=== PATIENT | female | born 1960 | race Caucasian/White ===

== ENCOUNTER → 2016-11-09 | Outpatient (REF) | payer OTHER ==
[~2016-11-09] MED LIST: NASONEX; OMEP20CA3 PO; astelin spray; ventolin inhaler
== END ==
LOC: M SFHCCLAY 08:01
PROVIDERS: ATTEND Family Medicine
DX: N88.8 Other specified noninflammatory disorders of cervix uteri (principal)

== ENCOUNTER → 2016-12-27 | Outpatient (REF) | payer OTHER | LOC: M SFHCCLAY 17:36 | PROVIDERS: ATTEND Family Medicine | DX: L72.0 Epidermal cyst (principal) ==

== ENCOUNTER → 2017-11-14 | Outpatient (REF) | payer OTHER ==
[2017-11-14 13:45] LABS: CHOLESTEROL LEVEL 238 MG/DL (<200); HDL CHOLESTEROL 50 MG/DL (>40); LDL CHOLESTEROL 135.4 MG/DL (<100); NON-HDL-C 188 MG/DL; TRIGLYCERIDES LEVEL 263 MG/DL (<150)
== END ==
LOC: M SFHCCLAY 07:57
DX: Z12.4 Encounter for screening for malignant neoplasm of cervix (principal)

== ENCOUNTER → 2019-11-19 | Outpatient (REF) | payer OTHER ==
[~2019-11-19] MED LIST changes: +ASPI81TA85 PO; +BIOT50005 PO; +CENTTAB PO; +LETR2.5T2 PO; +METO1TAB32 PO; +MOME50SP; +VITA500046 PO; +VITA500C24 PO; +ZOLO50TA PO
== END ==
LOC: M SFHCCLAY 08:21
PROVIDERS: ATTEND Family Medicine
DX: Z12.4 Encounter for screening for malignant neoplasm of cervix (principal)

== ENCOUNTER → 2019-12-24 | Outpatient (REF) | payer OTHER | LOC: M SFHCCLAY 10:35 | PROVIDERS: ATTEND Family Medicine | DX: Z12.4 Encounter for screening for malignant neoplasm of cervix (principal) ==

== ENCOUNTER → 2020-01-15 | Outpatient (REF) | payer OTHER | LOC: M SFHCCLAY 09:50 | PROVIDERS: ATTEND Family Medicine | DX: Z12.4 Encounter for screening for malignant neoplasm of cervix (principal) ==

== ENCOUNTER → 2020-08-28 | Outpatient (CLI) | payer BC, OTHER ==
[~2020-08-28] MED LIST changes: -ASPI81TA85 PO; +ASPI81TA86 PO; +GASTROGRAFIN SOLUTION 30ML (Q9963) As Ordered ONE; +ISOVUE-370 76% 100ML VIAL As Ordered ONE
--- NOTE | 2020-08-28 21:08 | REP ---
INDICATION: HX OF BREAST CA, RISING TUMOR MARKER. COMPARISON: 04/15/2011 TECHNIQUE: Axial contrast-enhanced images from the lung bases to the pubic symphysis using 100 cc Isovue 370 intravenous contrast material. Delayed images of the abdomen along with coronal and sagittal reformations obtained. This CT examination was performed using the following dose reduction techniques: Automated exposure control, adjustment of mA and/or kv according to the patient's size, and the use of iterative reconstruction technique. FINDINGS: Liver, spleen, pancreas, gallbladder, bilateral adrenal glands and kidneys are normal. The enteric system including stomach, small, and large bowel appears normal. No evidence for obstruction or acute inflammatory process. Normal terminal ileum and cecum are identified in the right lower quadrant. Pelvis demonstrates normal bladder and age-appropriate uterus/right adnexa. No ascites. No free air. No intraperitoneal or retroperitoneal adenopathy. Abdominal aorta demonstrates mild atherosclerotic changes without aneurysm or dissection. Musculoskeletal structures are intact and without acute osseous abnormality. IMPRESSION: No acute abdominopelvic pathology appreciated. No evidence for metastatic disease. <Electronically signed by Dalton Andre > 08/28/20 [id number]
--- NOTE | 2020-08-28 21:11 | REP ---
INDICATION: HX OF BREAST CA, RISING TUMOR MARKER COMPARISON: 04/30/2015 TECHNIQUE: Axial contrast enhanced images from the thoracic inlet to the upper abdomen with coronal and sagittal reformations using 100 ml Isovue 370 intravenous contrast material followed by CT of the abdomen and pelvis. This CT examination was performed using the following dose reduction techniques: Automated exposure control, adjustment of mA and/or kv according to the patient's size, and use of iterative reconstruction technique. FINDINGS: The bilateral lung [place] are relatively clear and without consolidation, obvious nodule or mass lesion. No pleural effusion. No pneumothorax. Tracheobronchial tree is patent. Very minimal scarring at the lingula is suggested. No significant axillary, hilar, or mediastinal adenopathy. Thoracic aorta, pulmonary vasculature, and heart/pericardium are relatively normal. No evidence for aortic aneurysm or dissection. No cardiomegaly or pericardial effusion. Osseous structures are intact and without acute abnormality. IMPRESSION: No acute mediastinal or pleuroparenchymal process. No obvious evidence for metastatic disease. <Electronically signed by Dalton Andre > 08/28/20 [id number]
== END ==
LOC: M RAD 15:49
PROVIDERS: ATTEND Internal Medicine Hematology & Oncology
DX: E55.9 Vitamin D deficiency, unspecified (principal); Z85.3 Personal history of malignant neoplasm of breast
CPT/HCPCS: 71260; 74177; Q9963; Q9967

== ENCOUNTER → 2020-09-17 | Outpatient (CLI) | payer BC, OTHER ==
[~2020-09-17] MED LIST changes: -GASTROGRAFIN SOLUTION 30ML (Q9963) As Ordered ONE; -ISOVUE-370 76% 100ML VIAL As Ordered ONE
--- NOTE | 2020-09-17 13:27 | REP ---
INDICATION: ASSES METS, HX OF BREAST CA. COMPARISON: None. TECHNIQUE/RADIOTRACER AND DOSE: 19.2 mCi of Technetium-99m MDP was injected and standard whole-body bone scanning is acquired. FINDINGS: There is a normal distribution of skeletal tracer with uptake in bilateral kidneys and in the urinary bladder. There is no evidence to suggest skeletal metastatic disease. IMPRESSION: Negative whole body radionuclide bone scan. <Electronically signed by George Espinosa > 09/17/20 [id number]
== END ==
LOC: M RAD 09:06
PROVIDERS: ATTEND Internal Medicine Hematology & Oncology
DX: Z85.3 Personal history of malignant neoplasm of breast (principal)
CPT/HCPCS: 78306; A9503

== ENCOUNTER → 2020-10-20 | Outpatient (CLI) | payer BC, OTHER | LOC: M LABSMTC 14:22 | PROVIDERS: ATTEND Family Medicine | DX: Z20.822 Contact with and (suspected) exposure to COVID-19 (principal) ==

== ENCOUNTER → 2021-03-04 | Outpatient (CLI) | payer BC, OTHER ==
[~2021-03-04] MED LIST changes: +ASPI1CHW3 PO; +CETI-24 PO; +D31000TA2 PO; +OMEP1CAP73 PO; +VENTAER INH; +VITMTA PO
== END ==
LOC: M LABSMTC 11:16
PROVIDERS: ATTEND Anesthesiology
DX: Z01.818 Encounter for other preprocedural examination (principal); Z11.52 Encounter for screening for COVID-19

== ENCOUNTER 2021-03-09 12:22 | Day surgery (SDC) | payer BC, OTHER ==
[~2021-03-09] VITALS: Ht 175.3 cm; Wt 112.0 kg
[~2021-03-09 12:22] MED LIST changes: +NS 1,000 ML IV ONE
[2021-03-09] MEDS ORDERED: fentaNYL 100 MCG/2 ML INJECTION (J3010) As Ordered ONE (13:36)
[2021-03-09] MEDS ORDERED: LIDOCAINE 2% 100MG/5ML SDV (FOR ANES.) As Ordered ONE (13:36)
[2021-03-09] MEDS ORDERED: propofoL 200 MG/20 ML VIAL As Ordered ONE ×4 (13:36→14:21)
--- NOTE | 2021-03-09 14:06 | ROOR ---
Patient Name: Polly Prince Procedure Date: 03/09/2021 1:45 PM Date of : 1960 Age: 60 Room: [facility] Gender: Female Note Status: Finalized Procedure: Upper GI endoscopy Indications: Surveillance for malignancy due to personal history of Hurtado's esophagus Providers: Adan Hussein MD Referring MD: Angelito Flores MD Requesting Provider: Medicines: Monitored Anesthesia Care Complications: No immediate complications. Procedure: Pre-Anesthesia Assessment: - The heart rate, respiratory rate, oxygen saturations, blood pressure, adequacy of pulmonary ventilation, and response to care were monitored throughout the procedure. The Endoscope was introduced through the mouth, and advanced to the second part of duodenum. The upper GI endoscopy was accomplished without difficulty. The patient tolerated the procedure well. Findings: The Z-line was variable and was found 38 cm from the incisors. Biopsies were taken with a cold forceps for histology. Small Hiatal Hernia. The entire examined stomach was normal. Three 3 mm sessile polyps were found in the first portion of the duodenum. This was biopsied with a cold forceps for histology. The exam of the duodenum was otherwise normal. Impression: - Z-line variable, 38 cm from the incisors. Biopsied. - Small Hiatal Hernia. - Otherwise normal stomach. - Three duodenal polyps. Biopsied. - Otherwise normal duodenum. Biopsied for eval for celiac diease Recommendation: - Continue present medications. - Observe patient's clinical course. - Follow an antireflux regimen. - Repeat upper endoscopy in 3 - 5 years for surveillance of Hurtado's esophagus. Procedure Code(s): --- Professional --- 98674, Esophagogastroduodenoscopy, flexible, transoral; with biopsy, single or multiple Diagnosis Code(s): --- Professional --- K31.7, Polyp of stomach and duodenum K22.70, Hurtado's esophagus without dysplasia K22.8, Other specified diseases of esophagus CPT copyright 2019 [employer]. All rights reserved. The codes documented in this report are preliminary and upon primary therapist review may be revised to meet current compliance requirements. Adan Hussein MD Adan Hussein MD 03/09/2021 2:05:58 PM Electronically signed by Adan Hussein MD Number of Addenda: 0 Note Initiated On: 03/09/2021 1:45 PM Estimated Blood Loss: Estimated blood loss: none.
--- NOTE | 2021-03-09 14:28 | ROOR ---
Patient Name: Polly Prince Procedure Date: 03/09/2021 1:46 PM Date of : 1960 Age: 60 Room: [facility] Gender: Female Note Status: Finalized Procedure: Colonoscopy Indications: High risk colon cancer surveillance: Personal history of colonic polyps, Incidental - Iron deficiency anemia Providers: Adan Hussein MD Referring MD: Angelito Flores MD Requesting Provider: Medicines: Monitored Anesthesia Care Complications: No immediate complications. Procedure: Pre-Anesthesia Assessment: - The heart rate, respiratory rate, oxygen saturations, blood pressure, adequacy of pulmonary ventilation, and response to care were monitored throughout the procedure. The Colonoscope was introduced through the anus and advanced to 10 cm into the ileum. The colonoscopy was performed without difficulty. The patient tolerated the procedure well. The quality of the bowel preparation was good. Findings: The perianal and digital rectal examinations were normal. Three sessile polyps were found in the ascending colon and cecum. The polyps were diminutive in size. These polyps were removed with a cold snare. Resection and retrieval were complete. Mild sigmoid diverticulosis and small internal hemorrhoids. The exam was otherwise without abnormality on direct and retroflexion views. Impression: - Three diminutive polyps in the ascending colon and in the cecum, removed with a cold snare. Resected and retrieved. - Mild sigmoid diverticulosis and small internal hemorrhoids. - The examination was otherwise normal on direct and retroflexion views. Recommendation: - Repeat colonoscopy in 5 years for surveillance. Procedure Code(s): --- Professional --- 74894, Colonoscopy, flexible; with removal of tumor(s), polyp(s), or other lesion(s) by snare technique Diagnosis Code(s): --- Professional --- K63.5, Polyp of colon Z86.010, Personal history of colonic polyps CPT copyright 2019 [employer]. All rights reserved. The codes documented in this report are preliminary and upon mortgage professional review may be revised to meet current compliance requirements. Adan Hussein MD Adan Hussein MD 03/09/2021 2:27:35 PM Electronically signed by Adan Hussein MD Number of Addenda: 0 Note Initiated On: 03/09/2021 1:46 PM Estimated Blood Loss: Estimated blood loss: none.
[2021-03-09 15:01] VITALS: BP 83/52
== END 2021-03-09 15:04 | disposition home or self-care (01) ==
LOC: M OPP 12:22
PROVIDERS: ATTEND Internal Medicine Gastroenterology
DX: Z12.11 Encounter for screening for malignant neoplasm of colon (principal); D12.2 Benign neoplasm of ascending colon; K64.8 Other hemorrhoids; K57.30 Diverticulosis of large intestine without perforation or abscess without bleeding; K22.8 Other specified diseases of esophagus; K44.9 Diaphragmatic hernia without obstruction or gangrene; K31.7 Polyp of stomach and duodenum; K22.70 Barrett's esophagus without dysplasia; K21.9 Gastro-esophageal reflux disease without esophagitis; R12 Heartburn; Z79.82 Long term (current) use of aspirin; Z79.899 Other long term (current) drug therapy; Z88.0 Allergy status to penicillin; Z88.1 Allergy status to other antibiotic agents; Z88.2 Allergy status to sulfonamides; Z85.3 Personal history of malignant neoplasm of breast
CPT/HCPCS: 43239; 45385; 88305; J3010

== ENCOUNTER → 2021-05-04 | Outpatient (CLI) | payer BC, OTHER ==
[~2021-05-04] MED LIST changes: +GASTROGRAFIN SOLUTION 30ML (Q9963) As Ordered ONE; +ISOVUE-370 76% 100ML VIAL As Ordered ONE; -NS 1,000 ML IV ONE
--- NOTE | 2021-05-04 14:09 | REP ---
INDICATION: RESTAGING BREAST CA, RISING TUMOR MARKERS ? METS. COMPARISON: 08/28/2020. TECHNIQUE: Bolus 100 mL Isovue 370 scanning through the chest with coronal and sagittal reconstructions. FINDINGS: The lung [place] are well inflated. There is no pleural effusion, pleural thickening or calcified pleural plaque. Some minor apical pleuroparenchymal scarring on the right. A tiny subpleural nodule in the perifissural region on image 16 a superior segment left lower lobe is unchanged. Lungs are otherwise clear heart is not enlarged. There is no pericardial effusion. I see no hiatal hernia. The aorta shows calcifications at the arch but no aneurysm or dissection. The main, right and left pulmonary arteries in the mediastinum are without filling defects. Adenopathy has developed in the mediastinum with a 15 mm subcarinal node, multiple subcentimeter precarinal and AP window nodes, bone windows show sternum, manubrium, medial clavicles, that portion of visualized scapulae, humeral heads, ribs and spine all without fracture or focal lesion. The upper abdomen shows visualized portions of liver, spleen, gallbladder, pancreas and upper poles of the kidneys intact. That portion of abdominal aorta seen was normal no hiatal hernia. No calcified gallstones. But all increased in size since previous study. Right paratracheal node on image 31 about 11 mm and conglomerate right hilar nodes up to 15 mm in short axis. Other cm sized right hilar and sub cm left hilar nodes seen. Prevascular space with a few subcentimeter nodes but increase in number and other superior mediastinal nodes anteriorly seen which were not present previously. There is no axillary supraclavicular adenopathy. There are surgical clips in the right axilla and bilateral chest wall from previous mastectomy and reconstruction surgeries. IMPRESSION: 1. A CT evidence of parenchymal lung metastatic disease, pleural effusion, bony metastatic disease or chest wall mass. Postsurgical changes in the chest wall and axilla as described. 2. Interval development of the adenopathy in the mediastinum including subcarinal, right paratracheal, right hilar nodes and increase in numbers in the AP window, left hilum and prevascular space nodes. No axillary or supraclavicular adenopathy/mass. 3. Visualized portion of upper abdomen without acute finding in the visible liver, adrenal glands, spleen and the portions of the pancreas, upper poles kidneys and gallbladder included. <Electronically signed by Nathan Person > 05/04/21 [id number]
--- NOTE | 2021-05-04 14:19 | REP ---
INDICATION: RESTAGING BREAST CA, RISING TUMOR MARKERS ? METS. COMPARISON: Comparison CT study of the abdomen and pelvis is from 28 August 2020.. TECHNIQUE: Helical scanning is acquired following the intravenous injection of 100 mL of Isovue 370. Oral contrast was also administered. 3 mm axial images re-formatted. Coronal and sagittal MPR images are provided. FINDINGS: Preliminary digital local bulk driver radiograph is unremarkable. Normal bowel gas pattern. There is no evidence of pleural effusion or upper abdominal ascites. There is mild to moderate diffuse fatty infiltration of the liver. Liver is not felt to be enlarged. Spleen is homogeneous in texture normal in size. No pancreatic abnormality is seen. No abnormality is noted in the gallbladder. Normal adrenal glands are observed. There is a single celiac axis lymph node in the midline of the upper abdomen which is slightly more prominent than on the August 28, 2020 study. this measures 13 x 11 by 14 mm. Previously, this node measured only 5 mm in greatest diameter. no periaortic or retroperitoneal adenopathy is seen. No pelvic mass or adenopathy is observed. Patient appears to be status post abdominal ventral hernia repair with multiple surgical clips along the anterior abdominal wall. Urinary bladder is intact. Uterus is unremarkable. No adnexal abnormality is seen. Small and large bowel loops are unremarkable in the abdomen and pelvis. Bone window settings show no evidence of lytic or blastic skeletal lesion to suggest bony metastatic disease. IMPRESSION: There is a single celiac axis lymph node in the upper abdominal midline which is slightly more prominent although still not pathologically enlarged. Uncertain significance. Fatty infiltration of the liver. Postoperative changes. Otherwise unremarkable. <Electronically signed by George Espinosa > 05/04/21 [id number]
--- NOTE | 2021-05-04 15:16 | REP ---
INDICATION: RESTAGING BREAST CA, RISING TUMOR MARKERS ? METS. COMPARISON: 09/17/2020 TECHNIQUE/RADIOTRACER AND DOSE: After the intravenous administration of 22 mCi of technetium 99 M MDP a total body bone scan was obtained. FINDINGS: Once again, there is a degenerative type uptake pattern seen in the shoulders, hips, knees, and feet. This is essentially unchanged. No abnormal linear or focal activity has developed since the last exam. IMPRESSION: No compelling evidence for metastatic disease. No significant change compared to the prior exam. <Electronically signed by Leon Hernandez > 05/04/21 [id number]
== END ==
LOC: M RAD 09:53
PROVIDERS: ATTEND Internal Medicine Hematology & Oncology
DX: C50.919 Malignant neoplasm of unspecified site of unspecified female breast (principal); E55.9 Vitamin D deficiency, unspecified; D64.9 Anemia, unspecified; J45.909 Unspecified asthma, uncomplicated; K22.70 Barrett's esophagus without dysplasia; K63.5 Polyp of colon

== ENCOUNTER → 2021-05-24 | Outpatient (CLI) | payer BC, OTHER ==
[~2021-05-24] MED LIST changes: -GASTROGRAFIN SOLUTION 30ML (Q9963) As Ordered ONE; -ISOVUE-370 76% 100ML VIAL As Ordered ONE
--- NOTE | 2021-05-24 14:47 | REP ---
INDICATION: RESTAGING MALIGNANT NEOPLASM OF FEMALE BREAST. New right paratracheal and subcarinal lymphadenopathy. Increased size of celiac axis lymph node. Patient is status post right mastectomy March 18, 2015 for malignancy. Prophylactic left mastectomy and breast reconstruction. Rising tumor markers. COMPARISON: Comparison PET-CT study May 21, 2015.. TECHNIQUE: Forty-nine minutes following the intravenous injection of a 8.83 mCi dose of F-18 FDG, three-dimensional PET scintigraphy is acquired from the skull base to the proximal thighs. Triplanar noncontrast CT scanning is acquired through the same anatomic range for attenuation correction, and image registration with scan parameters optimized to minimize radiation exposure to the patient. PET scintigraphy and CT datasets were fused and displayed on a workstation with multiplanar and projection display capability. FINDINGS: Head and neck soft tissues are unremarkable. In the chest, there is right paratracheal, pretracheal, subcarinal, and right hilar hypermetabolic lymphadenopathy. This corresponds to the CT findings. Metabolic activity in the subcarinal node is the most avid, maximum SUV value 11.89. Right hilar adenopathy shows SUV 11.54. Other kevon activity ranges up from 5.01. There is no other abnormal hypermetabolic uptake within the chest. No axillary or internal mammary kevon hypermetabolic uptake is appreciated. No abnormal pleural uptake is seen. In the abdomen and pelvis, there is normal hepatic, splenic, gastrointestinal, and genitourinary FDG accumulation. No abnormal hypermetabolic uptake is seen in the abdomen or pelvis. IMPRESSION: Hypermetabolic right hilar and mediastinal adenopathy suspicious for malignancy. This represents a change from comparison PET-CT. No other abnormal hypermetabolic uptake is seen. <Electronically signed by George Espinosa > 05/24/21 [id number]
== END ==
LOC: M PLARAD 11:02
PROVIDERS: ATTEND Internal Medicine Hematology & Oncology
DX: C50.919 Malignant neoplasm of unspecified site of unspecified female breast (principal); E55.9 Vitamin D deficiency, unspecified; D64.9 Anemia, unspecified; J45.909 Unspecified asthma, uncomplicated; K22.70 Barrett's esophagus without dysplasia; K63.5 Polyp of colon
CPT/HCPCS: 78815; A9552

== ENCOUNTER → 2021-06-05 | Outpatient (CLI) | payer BC, OTHER ==
[~2021-06-05] MED LIST changes: +MELA3TAB49 PO; +NIFE15CA PO
== END ==
LOC: M LABSMTC 10:46
PROVIDERS: ATTEND Anesthesiology
DX: Z01.812 Encounter for preprocedural laboratory examination (principal)

== ENCOUNTER 2021-06-10 06:53 | Day surgery (SDC) | payer BC, OTHER ==
[~2021-06-10] VITALS: Ht 170.2 cm; Wt 113.6 kg
[~2021-06-10 06:53] MED LIST changes: +ALBUTEROL SULFATE 2.5 MG/0.5 ML INH NEB SOLN INH ONE; +LIDOCAINE 4% INJ 5ML AMP INH ONE; +LR 1,000 ML IV ONE
[2021-06-10 07:37] LABS: PLTBLUE- EDTA FREE CALC 238 K/mm3 (172-450); PLTBLUE- EDTA FREE MACHINE 216 10^3/uL (172-450)
[2021-06-10 07:48] LABS: INR 0.97; PROTHROMBIN TIME 13.3 SECONDS (12.7-14.5)
[2021-06-10 07:49] LABS: PARTIAL THROMBOPLASTIN TIME 29.5 SECONDS (25.9-37.0)
[2021-06-10] MEDS ORDERED: THROMBIN SOLN 20,000 UNITS KIT As Ordered ONE (08:17)
[2021-06-10] MEDS ORDERED: CETACAINE SPRAY 5GM As Ordered ONE (08:17)
[2021-06-10] MEDS ORDERED: EPINEPHrine 1MG/10ML SYRINGE 1.5IN As Ordered ONE (08:17)
[2021-06-10] MEDS ORDERED: LIDOCAINE 4% TOPICAL SOLN 50 ML BTL As Ordered ONE (08:18)
[2021-06-10] MEDS ORDERED: LIDOCAINE VISCOUS 2% SOLN 15ML UDC As Ordered ONE (08:18)
[2021-06-10] MEDS ORDERED: LIDOCAINE 1% SDV 30ML VIAL As Ordered ONE (08:18)
[2021-06-10] MEDS ORDERED: MIDAZOLAM INJ 2MG/2ML VIAL (J2250 PER 1MG) As Ordered ONE (08:20)
[2021-06-10] MEDS ORDERED: propofoL 200 MG/20 ML VIAL As Ordered ONE (08:20)
[2021-06-10] MEDS ORDERED: LIDOCAINE 2% 100MG/5ML SDV (FOR ANES.) As Ordered ONE (08:20)
[2021-06-10] MEDS ORDERED: ROCURONIUM BROMIDE 50 MG/5 ML VIAL As Ordered ONE (08:20)
[2021-06-10] MEDS ORDERED: fentaNYL 100 MCG/2 ML INJECTION (J3010) As Ordered ONE (08:20)
[2021-06-10] MEDS ORDERED: dexameTHASONE 4 MG/ML 1ML VIAL (J1100 PER 1MG) As Ordered ONE (08:20)
[2021-06-10] MEDS ORDERED: ONDANSETRON 4MG/2ML VIAL As Ordered ONE (08:20)
[2021-06-10] MEDS ORDERED: SUGAMMADEX SODIUM 500 MG/5 ML VIAL (BRIDION) As Ordered ONE (09:07)
[2021-06-10] MEDS ORDERED: ePHEDrine SULFATE 25 MG/5 ML(5MG/ML) SYRINGE As Ordered ONE (09:09)
[2021-06-10] MEDS ORDERED: LACRILUBE (AKWA TEARS) OPHTH OINT 3.5 GM As Ordered ONE (09:10)
[2021-06-10] MEDS ORDERED: LR 1,000 ML IV SCH (09:40)
[2021-06-10] MEDS ORDERED: oxyCODONE 5MG TAB PO PRN (09:40)
[2021-06-10] MEDS ORDERED: METOCLOPRAMIDE INJ 10MG/2ML VIAL (J2765 PER 1) IV PRN (09:40)
[2021-06-10] MEDS ORDERED: MEPERIDINE INJ 25 MG/ML VIAL (J2175) IV PRN (09:40)
[2021-06-10] MEDS ORDERED: ONDANSETRON 4MG/2ML VIAL IV PRN (09:40)
[2021-06-10] MEDS ORDERED: fentaNYL 100 MCG/2 ML INJECTION (J3010) IV PRN (09:40)
--- NOTE | 2021-06-10 10:11 | RO ---
OPERATIVE NOTE DATE OF OPERATION: 06/10/2021 PREOPERATIVE DIAGNOSIS: Hilar and mediastinal adenopathy. POSTOPERATIVE DIAGNOSIS: Hilar and mediastinal adenopathy. PROCEDURE: Fiberoptic bronchoscopy with endobronchial ultrasound for fine needle aspirate of a subcarinal node. SURGEON: CARMEN LOVETT M.D. ANESTHESIA: General. Other medications are 2 ml of topical Epinephrine. SPECIMENS: Fine needle aspirate of the subcarinal node. Informed consent was obtained prior to procedure. OPERATIVE FINDINGS: 1. Mild mucosal edema. 2. Broadened terrie. 3. Mild friability of the left lower lobe. DESCRIPTION OF PROCEDURE: After the patient was identified and the above anesthesia given, the fiberoptic bronchoscope was easily passed through the existing endotracheal tube. The tube was found to be in good position. The terrie was quite broadened. Both mainstem bronchi were widely patent. There was an initial drop in the patient's oxygen saturation. The scope was then withdrawn. Six cm of water of PEEP were then added with an increase in her FIO2 and oxygen saturation returned to 99%. The scope was then reintroduced. The right lung was entered first. All segments and sub-segments easily identified. There was some mild compromise in the middle lobe but was able to admit the scope. No focal endobronchial mucosa abnormalities were identified. The left lung was then entered. Again, some mild edema was noted. There was mild friability of the left lower lobe bronchus at the takeoff but no distinctive endobronchial or mucosal lesion was identified. The standard scope was then withdrawn and the endobronchial ultrasound scope was then introduced. Using a #21 gauge needle, at least three separate passes were made. Good cellular material was obtained and confirmed by the contact center consultant in the room. Prior to the passing of the first needle, 3 ml of topical Epinephrine were used. When adequate specimens were obtained, the EBUS scope was withdrawn and the standard scope reintroduced. No evidence of any bleeding was noted. The procedure was then terminated and care turned over to anesthesia for extubation and reversal of anesthesia. No immediate complications noted. No chest x-ray necessary.
[2021-06-10 10:55] VITALS: BP 100/56
== END 2021-06-10 11:25 | disposition home or self-care (01) ==
LOC: M SDC 06:53
PROVIDERS: ATTEND Internal Medicine Pulmonary Disease
DX: C78.01 Secondary malignant neoplasm of right lung (principal); J98.4 Other disorders of lung; R91.8 Other nonspecific abnormal finding of lung field; K22.70 Barrett's esophagus without dysplasia; D64.9 Anemia, unspecified; D68.0 Von Willebrand disease; G62.9 Polyneuropathy, unspecified; R06.83 Snoring; Z85.3 Personal history of malignant neoplasm of breast; Z92.21 Personal history of antineoplastic chemotherapy; Z92.3 Personal history of irradiation; Z87.891 Personal history of nicotine dependence; F10.11 Alcohol abuse, in remission; Z88.1 Allergy status to other antibiotic agents; Z88.0 Allergy status to penicillin; Z88.2 Allergy status to sulfonamides; Z79.899 Other long term (current) drug therapy; Z79.82 Long term (current) use of aspirin
CPT/HCPCS: 31652; 36415; 85049; 85610; 85730; 88173; 88305; 88341; 88342; J1100; J2250; J2405; J3010

== ENCOUNTER → 2021-06-28 | Outpatient (CLI) | payer BC, OTHER ==
[~2021-06-28] MED LIST changes: -ALBUTEROL SULFATE 2.5 MG/0.5 ML INH NEB SOLN INH ONE; -LIDOCAINE 4% INJ 5ML AMP INH ONE; -LR 1,000 ML IV ONE; -MOME50SP; +NASO50SP3; +PROHANCE 279.3MG/ML 15ML VIAL As Ordered ONE; +PROHANCE 279.3MG/ML 5ML VIAL As Ordered ONE
== END ==
LOC: M RAD 16:51
PROVIDERS: ATTEND Internal Medicine Hematology & Oncology
DX: R51.9 Headache, unspecified (principal)

== ENCOUNTER → 2021-06-29 | Outpatient (CLI) | payer BC, OTHER ==
[~2021-06-29] MED LIST changes: +MOME50SP; -NASO50SP3; -PROHANCE 279.3MG/ML 15ML VIAL As Ordered ONE; -PROHANCE 279.3MG/ML 5ML VIAL As Ordered ONE
--- NOTE | 2021-06-29 20:36 | ECHO ---
ECHOCARDIOGRAM DATE OF PROCEDURE: 06/29/2021 Age: 60 Gender: Female Height: 67 inches Weight: 254 pounds Body surface area: 2.4 m2 Outpatient. REFERRING PHYSICIAN: Dr. Delgado INDICATION: Breast cancer, starting Herceptin. MEASUREMENTS: 2D Measurements: RV - 3.6 cm LV - 5.3 cm Septum 1.1 cm Posterior wall 1.1 cm Aortic root 3.4 cm LA - 4.2 cm LVEF 65% Doppler Measurements: AV - 1.33 m/s LVOT - 0.8 m/s LVOT diameter 2.0 cm MV-E 61, A 63, E:A ratio 1.0 Early mitral deceleration time 268 msec E prime medial 7.2 A prime medial 8.9 E prime lateral 11.8 PV - 1.0 m/s Pulmonary artery acceleration 120 msec PASP 28 mmHg IVC - 2.0 cm COMMENTS: Normal sinus rhythm without intraventricular conduction disturbance. M-mode and 2-dimensional echocardiography was performed with pulse, continuous wave, color flow, and tissue Doppler studies. Normal left ventricular size, wall thickness, and wall motion. Mildly dilated left atrium with currently normal LV diastolic function and estimated mean left atrial pressure. Normal right heart chamber sizes and motion and estimated pulmonary arterial pressure. Normal IVC size and collapse against an elevated central venous pressure. Normal aortic dimensions. Normal-appearing and functioning aortic valve. Normal-appearing mitral valvular structures and leaflet excursion with no posterior systolic buckling but very mild posteriorly directed insufficiency (physiologic). Normal-appearing tricuspid valve with very mild insufficiency. No apparent intracardiac mass. At least small pericardial effusion, measuring 0.5 cm posteriorly, 0.4 cm anteriorly, and 0.5 cm apically. No sign of cardiac chamber compression or significant respiratory variation to flow velocities to suggest cardiac compression. Her IVC also collapses normally.
== END ==
LOC: M CARPUL 11:22
PROVIDERS: ATTEND Internal Medicine Hematology & Oncology
DX: J45.909 Unspecified asthma, uncomplicated (principal)

== ENCOUNTER → 2021-07-26 | Outpatient (CLI) | payer BC, OTHER ==
--- NOTE | 2021-07-27 10:04 | REP ---
INDICATION: BREAST CANCER FOR RADIATION PLANNING C50.919. Patient began chemotherapy on July 02, 2021. COMPARISON: PET-CT of 05/24/2021. Prior CT chest abdomen pelvis 05/04/2021. TECHNIQUE: After the intravenous administration of 9.35 mCi of FDG 18 triplane whole-body PET-CT was performed from the skull vertex to the feet FINDINGS: The intense hypermetabolism seen previously in the mediastinum and right hilum on the prior examination has improved so markedly in the hilum that I cannot distinguish normal hypermetabolic activity from the blood pool and the possibility of a tiny residual hypermetabolic node. The hypermetabolism seen previously in the subcarinal region now has a maximal SUV value of 3.19. Previously, this same regions hypermetabolic activity was 11.89. No other areas of abnormal hypermetabolism are seen in the neck, chest, abdomen, or pelvis. Diffuse scattered multifocal hypermetabolic activity is seen throughout the axial and appendicular skeleton. The axial skeletal uptake and imaged appendicular skeletal uptake on the prior exam is unchanged IMPRESSION: There has been marked improvement as described above. <Electronically signed by Leon Hernandez > 07/27/21 1000
== END ==
LOC: M PLARAD 14:06
PROVIDERS: ATTEND Specialist
DX: C50.919 Malignant neoplasm of unspecified site of unspecified female breast (principal); E55.9 Vitamin D deficiency, unspecified; D64.9 Anemia, unspecified; J45.909 Unspecified asthma, uncomplicated; K22.70 Barrett's esophagus without dysplasia; K63.5 Polyp of colon
CPT/HCPCS: 78815; A9552

== ENCOUNTER → 2021-08-30 | Outpatient (CLI) | payer BC, OTHER ==
[~2021-08-30] MED LIST changes: +PROHANCE 279.3MG/ML 15ML VIAL As Ordered ONE; +PROHANCE 279.3MG/ML 5ML VIAL As Ordered ONE
--- NOTE | 2021-08-30 19:50 | REPVR ---
PROCEDURE INFORMATION: Exam: MR Head Without and With Contrast Exam date and time: 08/30/2021 4:15 PM Age: 60 years old Clinical indication: Condition or disease; History of cancer (specify primary cancer site): ; Primary cancer: Breast; Additional info: Breast CA TECHNIQUE: Imaging protocol: MR of the head without and with intravenous contrast. Contrast material: PROHANCE; Contrast volume: 20 ml; Contrast route: INTRAVENOUS (IV); COMPARISON: MRI-Brain W/O FOLL BY WITH 06/28/2021 6:46 PM FINDINGS: Limitations: Examination is limited by motion artifact. Brain: Mild scattered nonspecific T2/FLAIR hyperintensities of the periventricular and deep subcortical white matter, most likely secondary to chronic small vessel ischemic change. No intracranial hemorrhage or extra-axial fluid collection. No evidence of mass effect or midline shift. No restricted diffusion to suggest acute infarct. No abnormal intracranial enhancement. Cerebral ventricles: No ventriculomegaly. Bones/joints: Redemonstration of scattered small enhancing lesions throughout the calvarium, most prominently in the right occipital region. Paranasal sinuses: Normal as visualized. No acute sinusitis. Mastoid air cells: No mastoid effusion. Orbital cavity: Unremarkable. Soft tissues: Unremarkable. IMPRESSION: 1. Redemonstration of small scattered enhancing lesions throughout the calvarium. Findings are nonspecific though could potentially reflect osseous metastatic disease, though no correlate finding present on prior nuclear medicine bone scan from 05/04/2021. Continued interval follow-up at the discretion of oncology. 2. No acute intracranial findings. Previously seen small enhancing lesion within the left parietal lobe suspected to be related to artifact, with similar motion related artifact on this examination. Electronically signed by: Román Baer On 08/30/2021 19:50:04 PM
== END ==
LOC: M RAD 15:00
PROVIDERS: ATTEND Specialist
DX: C50.919 Malignant neoplasm of unspecified site of unspecified female breast (principal); E55.9 Vitamin D deficiency, unspecified; D64.9 Anemia, unspecified; J45.909 Unspecified asthma, uncomplicated; K22.70 Barrett's esophagus without dysplasia; K63.5 Polyp of colon

== ENCOUNTER → 2021-11-19 | Outpatient (CLI) | payer BC, OTHER ==
[~2021-11-19] MED LIST changes: -MOME50SP; +NASO50SP3; -PROHANCE 279.3MG/ML 15ML VIAL As Ordered ONE; -PROHANCE 279.3MG/ML 5ML VIAL As Ordered ONE
== END ==
LOC: M PLARAD 13:21
PROVIDERS: ATTEND Specialist
DX: C50.919 Malignant neoplasm of unspecified site of unspecified female breast (principal); D64.9 Anemia, unspecified; E55.9 Vitamin D deficiency, unspecified

== ENCOUNTER → 2022-01-24 | Outpatient (CLI) | payer BC, OTHER ==
[~2022-01-24] MED LIST changes: -D31000TA2 PO; +VITA100093 PO
== END ==
LOC: M PLARAD 09:00
PROVIDERS: ATTEND Internal Medicine Hematology & Oncology
DX: C50.919 Malignant neoplasm of unspecified site of unspecified female breast (principal)
CPT/HCPCS: 78815; A9552

== ENCOUNTER → 2022-03-14 | Outpatient (CLI) | payer BC, OTHER | LOC: M PLARAD 14:56 | PROVIDERS: ATTEND Internal Medicine Hematology & Oncology | DX: C50.919 Malignant neoplasm of unspecified site of unspecified female breast (principal); D64.9 Anemia, unspecified; K22.70 Barrett's esophagus without dysplasia; K63.5 Polyp of colon; J45.909 Unspecified asthma, uncomplicated ==

== ENCOUNTER → 2022-07-05 | Outpatient (CLI) | payer BC, OTHER | LOC: M PLARAD 13:22 | PROVIDERS: ATTEND Internal Medicine Hematology & Oncology | DX: C50.919 Malignant neoplasm of unspecified site of unspecified female breast (principal) | CPT/HCPCS: 78815; A9552 ==

== ENCOUNTER → 2022-07-28 | Outpatient (CLI) | payer BC, OTHER ==
[~2022-07-28] MED LIST changes: +GASTROGRAFIN SOLUTION 30ML (Q9963) As Ordered ONE; +ISOVUE-370 76% 100ML VIAL As Ordered ONE
== END ==
LOC: M RAD 11:11
PROVIDERS: ATTEND Internal Medicine Hematology & Oncology
DX: C50.919 Malignant neoplasm of unspecified site of unspecified female breast (principal); D84.9 Immunodeficiency, unspecified; J45.909 Unspecified asthma, uncomplicated; K22.70 Barrett's esophagus without dysplasia; K63.5 Polyp of colon

== ENCOUNTER → 2023-05-08 | Outpatient (CLI) | payer BC, OTHER ==
[~2023-05-08] MED LIST changes: +ASPI-655 PO; -ASPI1CHW3 PO; -GASTROGRAFIN SOLUTION 30ML (Q9963) As Ordered ONE; -ISOVUE-370 76% 100ML VIAL As Ordered ONE
== END ==
LOC: M PLARAD 10:13
PROVIDERS: ATTEND Internal Medicine Hematology & Oncology
DX: C50.919 Malignant neoplasm of unspecified site of unspecified female breast (principal)
CPT/HCPCS: 78815; A9552

== ENCOUNTER → 2025-08-14 | Outpatient (CLI) | payer MEDICARE, BC ==
[~2025-08-14] MED LIST changes: -ASPI-655 PO; +ASPI-737 PO
== END ==
LOC: M RAD 09:38
PROVIDERS: ATTEND Internal Medicine Cardiovascular Disease
DX: R06.02 Shortness of breath (principal); I50.9 Heart failure, unspecified; I51.7 Cardiomegaly
CPT/HCPCS: 78472; A9560